=== PATIENT | female | born 1970 | race Caucasian/White ===

== ENCOUNTER → 2016-10-07 | Outpatient (CLI) | payer OTHER ==
[~2016-10-07] MED LIST: DIAZEPAM 5 MG TAB ONE; IOPAMIDOL (ISOVUE-M 300) 15 ML VIAL IV ONE; LIDOCAINE 1% 30 ML SDV ONE; NA BICARBONATE 50 MEQ/50 ML VIAL ONE
== END ==
LOC: FIMAGING 09:18
PROVIDERS: ATTEND Neurological Surgery
DX: M85.68 Other cyst of bone, other site (principal); M51.37 Other intervertebral disc degeneration, lumbosacral region
CPT/HCPCS: Q9967